=== PATIENT | male | born 1960 | race Caucasian/White ===

== ENCOUNTER 2022-04-23 08:40 | Emergency (ER) | payer BC ==
[~2022-04-23] VITALS: Ht 172.7 cm; Wt 94.1 kg
[2022-04-23 09:48] LABS: EOSINOPHILS # (AUTO) 0.2 X10'3 (0-0.9); MONOCYTES # (AUTO) 0.5 X10'3 (0-0.9); RED CELL DISTRIBUTION WIDTH 12.9 % (11.5-14.5)
[2022-04-23 09:49] LABS: BASOPHILS % (AUTO) 0.6 % (0-1); HEMATOCRIT 44.4 % (42.0-52.0); LYMPHOCYTES # (AUTO) 1.9 X10'3 (1.1-4.8); LYMPHOCYTES % (AUTO) 28.7 % (21-51); MEAN CORPUSCULAR HEMOGLOBIN 28.9 PG (27.0-31.0); MEAN CORPUSCULAR HGB CONC 33.8 g/dL (33.0-36.5); MEAN CORPUSCULAR VOLUME 85.6 FL (78-98); MEAN PLATELET VOLUME 9.8 FL (7.4-10.4); MONOCYTES % (AUTO) 7.1 % (2-12); NEUTROPHILS # (AUTO) 3.9 X10'3 (1.8-7.7); NEUTROPHILS % (AUTO) 60.6 % (42-75); PLATELET COUNT 241 X10'3 (140-440); RED BLOOD COUNT 5.19 X10'6 (4.70-6.10); WHITE BLOOD COUNT 6.4 X10'3 (4.5-11.0)
[2022-04-23 10:07] LABS: ALANINE AMINOTRANSFERASE 13 U/L (12-78); ALBUMIN 4.1 G/DL (3.4-5.0); ALKALINE PHOSPHATASE 43 IU/L (46-116); ANION GAP 7 (8-16); ASPARTATE AMINO TRANSFERASE 13 U/L (10-37); BILIRUBIN,TOTAL 0.4 MG/DL (0.1-1.0); BLOOD UREA NITROGEN 20 MG/DL (7-18); BUN/CREATININE RATIO 21.7 (5.4-32.0); CALCIUM 9.1 MG/DL (8.5-10.1); CHLORIDE 105 MMOL/L (99-107); CREATININE 0.92 MG/DL (0.60-1.10); GLUCOSE 93 MG/DL (70-104); POTASSIUM 4.4 MMOL/L (3.5-5.1); SODIUM 142 MMOL/L (135-145); TOTAL CARBON DIOXIDE 29.9 MMOL/L (24-32); TOTAL PROTEIN 8.1 G/DL (6.4-8.2); eGFR 83 ML/MIN
[2022-04-23 13:28] VITALS: BP 135/85
== END 2022-04-23 13:31 | disposition home or self-care (01) ==
LOC: ER 08:40
DX: R07.89 Other chest pain (principal)
CPT/HCPCS: 36415; 71045; 80053; 83880; 84484; 85025; 93005; 99285

== ENCOUNTER 2023-07-09 18:34 | Inpatient (IN) | payer BC ==
[~2023-07-09] VITALS: Ht 175.3 cm; Wt 97.7 kg
[2023-07-09] MEDS ORDERED: pantoprazole 40mg IV 80 MG in normal saline 100ml IV soln 100 ML IV ONE (18:50)
[2023-07-09 19:00] LABS: BASOPHILS % (AUTO) 0.3 % (0-1); EOSINOPHILS # (AUTO) 0.1 X10'3 (0-0.9); EOSINOPHILS % (AUTO) 0.7 % (0-6); HEMATOCRIT 41.8 % (42.0-52.0); HEMOGLOBIN 14.2 g/dl (14.0-17.9); LYMPHOCYTES # (AUTO) 1.3 X10'3 (1.1-4.8); LYMPHOCYTES % (AUTO) 12.4 % (21-51); MEAN CORPUSCULAR HEMOGLOBIN 29.1 PG (27.0-31.0); MEAN CORPUSCULAR VOLUME 85.5 FL (78-98); MEAN PLATELET VOLUME 9.3 FL (7.4-10.4); MONOCYTES # (AUTO) 0.5 X10'3 (0-0.9); MONOCYTES % (AUTO) 4.3 % (2-12); NEUTROPHILS # (AUTO) 8.9 X10'3 (1.8-7.7); NEUTROPHILS % (AUTO) 82.3 % (42-75); PLATELET COUNT 249 X10'3 (140-440); RED BLOOD COUNT 4.89 X10'6 (4.70-6.10); WHITE BLOOD COUNT 10.8 X10'3 (4.5-11.0)
[2023-07-09 19:18] LABS: ALANINE AMINOTRANSFERASE 19 U/L (12-78); ALBUMIN 4.2 G/DL (3.4-5.0); ALBUMIN/GLOBULIN RATIO 1.1 (1.1-1.5); ALKALINE PHOSPHATASE 50 IU/L (46-116); ANION GAP 11 (8-16); ASPARTATE AMINO TRANSFERASE 19 U/L (10-37); BILIRUBIN,TOTAL 0.2 MG/DL (0.1-1.0); BLOOD UREA NITROGEN 15 MG/DL (7-18); CALCIUM 9.3 MG/DL (8.5-10.1); CHLORIDE 102 MMOL/L (99-107); CREATININE 0.88 MG/DL (0.60-1.10); ETHANOL 255 MG/DL (<10); GLUCOSE 108 MG/DL (70-104); LIPASE 39 U/L (16-77); POTASSIUM 3.7 MMOL/L (3.5-5.1); SODIUM 141 MMOL/L (135-145); TOTAL CARBON DIOXIDE 27.7 MMOL/L (24-32); TOTAL PROTEIN 8.2 G/DL (6.4-8.2); eCRCL 86 ML/MIN; eGFR 87 ML/MIN
[2023-07-09 19:28] LABS: GASTRIC OCCULT BLOOD POSITIVE (Neg)
[2023-07-09 19:29] LABS: APTT 26 SECONDS (22-32); PROTHROMBIN TIME 11.1 SECONDS (9.0-12.0)
[2023-07-09 19:38] LABS: OCCULT BLOOD STOOL NEGATIVE (Neg)
[2023-07-09 20:00] LABS: BILIRUBIN,URINE NEGATIVE (Neg); CLARITY,URINE CLEAR (Clear); COLOR,URINE YELLOW (Yellow); GLUCOSE, URINE NEGATIVE (Neg); KETONES,URINE 15 mg/dl (Neg); LEUKOCYTE ESTERASE ,URINE NEGATIVE (Neg); NITRITES, URINE NEGATIVE (Neg); OCCULT BLOOD,URINE TRACE-INTACT (Neg); PROTEIN,URINE NEGATIVE (Neg); UROBILINOGEN,URINE 0.2 E.U/dL (0.2-1.0)
--- NOTE | 2023-07-09 20:09 | NUR ---
SON AT BEDSIDE. PATIENT DENIES NEEDS AT THIS TIME. RESPIRATIONS EVEN AND UNLABORED. NO ACUTE DISTRESS NOTED, CALL LIGHT WITHIN REACH.
[2023-07-09 20:13] LABS: UA COLLECTION TYPE VOIDED
[2023-07-09 20:14] LABS: BACTERIA,URINE NONE SEEN /HPF (Neg); MUCUS STRANDS NONE SEEN /LPF (Neg); RBC,URINE 0-2 /HPF (0-2); SQUAMOUS EPITHELIAL CELL,UR FEW /LPF (FEW); WBC,URINE NONE SEEN /HPF (0-4)
[2023-07-09] MEDS ORDERED: folic acid 1mg/0.2ml inj IV ONE (20:50)
[2023-07-09] MEDS ORDERED: thiamine 100mg/ml 2ml inj. IV ONE (20:50)
[2023-07-09] MEDS ORDERED: ondansetron/PF 4mg/2ml inj IV PRN (21:00)
[2023-07-09] MEDS ORDERED: LORazepam 2 mg/ml vial IV PRN (21:00)
[2023-07-09] MEDS ORDERED: acetaminophen 325mg tablet PO PRN (21:00)
[2023-07-09] MEDS: normal saline 1000ml 1,000 ML IV SCH (21:06)
[2023-07-09] MEDS ORDERED: PANT40TA54 PO (21:13)
[2023-07-09] MEDS ORDERED: METO-395 PO (21:13)
--- NOTE | 2023-07-09 21:35 | NUR ---
ATIVAN GIVEN FOR CIWA: 15
--- NOTE | 2023-07-09 22:35 | NUR ---
PATIENT RESTING IN BED WITH EYES CLOSED, RESPIRAITONS EVEN AND UNLABORED, NO ACUTE DISTRESS NOTED AT THIS TIME, CALL LIGHT WITHIN REACH.
[2023-07-10] VITALS (7 sets, daily range): BP systolic 138–157; BP diastolic 69–87; PULSE 71–88; RESP 10–15; TEMP 98.3; O2SAT 93–97
--- NOTE | 2023-07-10 01:48 | NUR ---
PATIENT RESTING IN BED WITH EYES CLOSED, RESPIRATIONS EVEN AND UNLABORED, NO ACUTE DISTRESS NOTED AT THIS TIME, CALL LIGHT WITHIN REACH.
[2023-07-10 02:27] LABS: BASOPHILS % (AUTO) 0.4 % (0-1); EOSINOPHILS # (AUTO) 0.1 X10'3 (0-0.9); EOSINOPHILS % (AUTO) 0.7 % (0-6); HEMOGLOBIN 13.2 g/dl (14.0-17.9); LYMPHOCYTES # (AUTO) 1.5 X10'3 (1.1-4.8); LYMPHOCYTES % (AUTO) 17.5 % (21-51); MEAN CORPUSCULAR HEMOGLOBIN 28.9 PG (27.0-31.0); MEAN CORPUSCULAR HGB CONC 33.9 g/dL (33.0-36.5); MEAN CORPUSCULAR VOLUME 85.3 FL (78-98); MEAN PLATELET VOLUME 9.1 FL (7.4-10.4); MONOCYTES # (AUTO) 0.4 X10'3 (0-0.9); MONOCYTES % (AUTO) 4.6 % (2-12); NEUTROPHILS # (AUTO) 6.8 X10'3 (1.8-7.7); NEUTROPHILS % (AUTO) 76.8 % (42-75); PLATELET COUNT 239 X10'3 (140-440); RED BLOOD COUNT 4.58 X10'6 (4.70-6.10); WHITE BLOOD COUNT 8.8 X10'3 (4.5-11.0)
[2023-07-10 02:41] LABS: ALANINE AMINOTRANSFERASE 18 U/L (12-78); ALBUMIN 3.7 G/DL (3.4-5.0); ALKALINE PHOSPHATASE 48 IU/L (46-116); ANION GAP 11 (8-16); ASPARTATE AMINO TRANSFERASE 16 U/L (10-37); BILIRUBIN,TOTAL 0.3 MG/DL (0.1-1.0); BLOOD UREA NITROGEN 12 MG/DL (7-18); BUN/CREATININE RATIO 14.5 (10.0-20.0); CALCIUM 8.7 MG/DL (8.5-10.1); CHLORIDE 107 MMOL/L (99-107); CREATININE 0.83 MG/DL (0.60-1.10); GLUCOSE 101 MG/DL (70-104); POTASSIUM 3.8 MMOL/L (3.5-5.1); SODIUM 145 MMOL/L (135-145); TOTAL CARBON DIOXIDE 26.6 MMOL/L (24-32); TOTAL PROTEIN 7.4 G/DL (6.4-8.2); eCRCL 91 ML/MIN; eGFR > 90 ML/MIN
--- NOTE | 2023-07-10 03:59 | NUR ---
PATIENT RESTING IN BED WITH EYES CLOSED, NO ACUTE DISTRESS NOTED AT THIS TIME. RESPIRATIONS EVEN AND UNLABORED. CALL LIGHT WITHIN REACH. IV HYDRATION INFUSING, NO SIGNS OF INFILTRATION NOTED AT THIS TIME.
[2023-07-10] MEDS: normal saline 1000ml 1,000 ML IV SCH ×2 (06:37→17:32)
[2023-07-10] MEDS ORDERED: pantoprazole 40MG/NS 100ML BAG 100 ML IV SCH ×2 (08:00→08:40)
[2023-07-10] MEDS ORDERED: fentaNYL/PF 50MCG/1 ML 2ML syringe ONE (16:06)
[2023-07-10] MEDS ORDERED: LIDOcaine Viscous 15ml cup ONE (16:07)
[2023-07-10] MEDS ORDERED: MIDAZolam 1 MG/ML 5ML VIAL ONE (16:07)
[2023-07-10] MEDS ORDERED: PANT40TA54 PO (18:43)
--- NOTE | 2023-07-10 19:47 | NUR ---
PT DISCHARGED TO HOME WITH VIA PRIVATE VEHICLE. IV DC'D CATH TIP INTACT. PT. TOLERATED PROCEDURE WELL. PT. DISCHARGE WITH ALL BELONGINGS. PT IN STABLE CONDITION.
[2023-07-11] MEDS ORDERED: LORazepam 1 MG tablet PO PRN (21:00)
[2023-07-11] MEDS ORDERED: LORazepam 2 mg/ml vial IV PRN (21:00)
[2023-07-13] MEDS ORDERED: LORazepam 1 MG tablet PO PRN (21:00)
[2023-07-14] MEDS ORDERED: thiamine 100mg tablet PO SCH (08:00)
== END 2023-07-10 19:54 | disposition home or self-care (01) | DRG 382 ==
LOC: ER 18:35 → ED HOLD 20:56 → UNDOADMIN 20:56 → ED HOLD 20:59 → ORTHO 4S 20:59 → UNDOADMIN 20:59 → ED HOLD 07-10 07:30 → ORTHO 4S 07-10 07:30 → UNDODISIN 07-10 19:54
PROVIDERS: ADMIT Internal Medicine; ATTEND Family Medicine
PROC: 0DB38ZX Excision of Lower Esophagus, Via Natural or Artificial Opening Endoscopic, Diagnostic (ICD-10-PCS; principal; 2023-07-10)
DX: K22.11 Ulcer of esophagus with bleeding (principal); K29.21 Alcoholic gastritis with bleeding; F10.229 Alcohol dependence with intoxication, unspecified; K21.00 Gastro-esophageal reflux disease with esophagitis, without bleeding; K44.9 Diaphragmatic hernia without obstruction or gangrene; I10 Essential (primary) hypertension
CPT/HCPCS: 36415; 43239; 74176; 80053; 80320; 81001; 82271; 82272; 83690; 83735; 85025; 85610; 85730; 86885; 86900; 86901; 93005; 99152; 99285; A4615; A4620; C9113; G0378; J2060; J2250; J3010; J3411; J3490; J7030